=== PATIENT | male | born 1955 | race Caucasian/White ===

== ENCOUNTER 2024-07-03 09:17 | Emergency (ER) | payer MEDICARE, OTHER, SELFPAY ==
[2024-07-03 09:27] VITALS: BP 143/64; PULSE 78; RESP 18; TEMP 38.2; O2SAT 100
--- OUTSIDE RECORDS SUMMARY | 2024-07-03 09:34 | XMS_ITS | Referral Summary ---
Author Organization [facility] [address] Address [address] [email or web address] [address] Phone Care Team Providers Care Utility Porter Name Role Phone Darlene Boo MD Primary Care Provider [phone] Jd Lebron MD Unavailable [phone] Don Parsons DC Unavailable +- [phone] Allergies No known active allergies Medications rcueg-mr5-pys-epa -kt5-klq-ahph 1000-130(40-80) mg capsuleIndication s:stop for surgery Take 1 capsule by mouth daily Active vitamin D3-vitamin K2 25 mcg (1,000 unit)-90 mcg tablet,disintegra ting Take by mouth Active lisinopril-hydroC HLOROthiazide (ZESTORETIC) 10-12.5 mg per tabletIndications :Benign hypertension Take 0.5-1 tablets by mouth daily 90 tablet 3 4 Active Active Problems Problem Noted Date Diagnosed Date Bilateral hip pain 01/15/2023 Assessment & Plan (01/15/2023 3:16 PM CDT): Chronic, worse over the last several weeks. See HPI for details. Mild tenderness as noted above, no weakness or acute exam findings. Will order XR to r/o arthritis or other structural changes. Rxd Celebrex as instructed. Offered both PT and tizanidine, pt refused at this time. Also offered ortho referral for joint injection, patient want to wait to see what meds do. Heat/ice as tolerated. Aspercreme with lidocaine may be helpful also. Call if pain is not improved in 2 weeks, will consider MRI at that time. Encounter for screening colonoscopy 08/29/2022 Overview (08/29/2022): Added automatically from request for surgery [id number] Overweight with body mass in dex (BMI) of 27 to 27.9 in adult 08/28/2022 Chronic left-sided low back pain without sciatic a 11/24/2021 Assessment & Plan (01/11/2022 11:03 AM CDT): Presents for follow up. Pain has resolved with PT and occasional Tylenol. No further symptoms or concerns today. Assessment & Plan (11/24/2021 9:49 AM CDT): Patient presents with ongoing low back/hip pain x 5 months. He had some improvement with customer care associate, but pain resumed with cessation of treatment. He is a hiker walking on uneven surfaces which probably contributes to symptoms. No injury. On exam no weakness, normal reflexes and full ROM. He however, has pain with straight leg raises and RIGOBERTO on the left. Has point tenderness in left buttock and concern for SI joint dysfunction. Have recommended that we trial physical therapy. Offered muscle relaxer, but he declined. He can use tylenol for pain along with ice. He will follow up in 6 weeks or sooner if needed. BPH without urinary obstruction 08/22/2020 Arthritis of knee 08/22/2020 Hx of adenomatous colonic polyps 08/20/2019 Overview (08/22/2020): Colonoscopy (+) 2018 Dr. Lebron, 10 mm tubular adenoma family history of colon cancer recheck at 3 years ED (erectile dysfunction) of organic origin 11/02 Overview (11/27/2017): Started trial Viagra 20 mg 2 tablets daily November 27, 2017 via telephone call conversation Diverticular disease of colon 10/17/2013 Overview (09/07/2016): Diverticulosis of colon Family history of colon cancer 10/17/2013 Overview (07/01/2017): Mother had colon cancer, she did not of the disease. She at the long-term with arthritis in her hip could not get out of bed developed a bedsore diet at age 83 Benign hypertension 04/14/1991 Overview (07/01/2017): Following blood pressure at home with range 140 over 80-85, on lisinopril/HCT since the Assessment & Plan (01/15/2023 3:12 PM CDT): BP stable in office today on lisinopril/HCTZ. No acute findings on exam. Continue current regimen and low salt diet. Resolved Problems Problem Noted Date Diagnosed Date Resolved Date Non-recurrent unilateral ing uinal hernia without obstruction or gangrene 12/31/2018 08/20/19 20 Overview (12/31/2018): Added automatically from request for surgery [id number] Screen for colon cancer 07/09/201808/01 Overview (07/09/2018): Added automatically from request for surgery [id number] Left inguinal hernia 07/01/2017 020 Overview (07/01/2017): On exam June 2017, watchful waiting for now Onychomycosis of toenail 10/17/2013 Overview (09/07/2016): Toenail fungus Benign prostatic hyperplasia with urinary obstruction 04/24/2013 07/01/2017 Overview (09/05/2016): BPH with obstruction/lower urinary tract symptoms Immunizations Name Administration Dates Next Due Hep A, Adult 07/04/2009,12/01/2008 Hep B Vaccine 12/08/2013,07/07/2013,06/09/2013 Pneumococcal Conjugate PCV 13 07/02/2018 Pneumococcal Polysaccharide PPV23 08/20/2019 Tdap 08/15/2011 Social History Tobacco Use Types Packs/Day Years Used Date Smoking Tobacco: Never Smokeless Tobacco: Never Tobacco Cessation:Counseling Given: Yes Alcohol Use Standard Drinks/Week Comments Yes 0 (1 standard drink = 0.6 oz pur e alcohol) wine special occassions PHQ-2 Answer Date Recorded PHQ-2 Total Score (If total score is 3 or more points, staff should administer the PHQ-9) 0 09/02/2023 Personal Safety Answer Date Recorded Have you ever been in or are you currently in a harmful physical or emotional relationship or is someone making you feel afraid or unsafe? 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 Not on file Not on file Last Filed Vital Signs Vital Sign Reading Time Taken Comments Blood Pressure 126/64 09/02/2023 9:33 AM CDT Pulse 80 09/02/2023 9:33 AM CDT Temperature 36.7 ??C (98 ??F) 09/02/2023 9:33 AM CDT Respiratory Rate 18 09/02/2023 9:33 AM CDT Oxygen Saturation 97% 09/02/2023 9:33 AM CDT Inhaled Oxygen Concentration - - Weight 96.2 kg (212 lb) 09/02/2023 9:33 AM CDT Height 182.9 cm (6') 09/02/2023 9:33 AM CDT Body Mass Index 28.75 09/02/2023 9:33 AM CDT Plan of Treatment Not on file Medical Devices Implanted Type Area Production Leader Device Identifier Shelf Expiration Date Model / Serial / Lot Med[employer]onic [employer] [id number] Progrip 15x9cm Self Relay Engineer Rectangle Mesh Surgical Polyester Hernia - [id number] Implanted:Qty: 1 on 01/05/2019 by Don Phelps MD at [facility] Left: Inguinal [employer] 07/03/2023 [id number] / / [id number] Procedures Procedure Name Priority Date/Time Associated Diagnosis Comments PSA SCREEN Routine 08/27/2023 8:19 AM CDT Prostate cancer screening COLONOSCOPY 12/10/2022 7:25 AM CDT HEPATITIS C ANTIBODY Routine 07/02/2018 1:58 PM PANELBOARD ASSEMBLER Encounter for hepatitis C screening test for low risk patient from Last 3 Months or Most Recently Relevant to Health Maintenance Results * PSA screen (08/27/2023 8:19 AM CDT) PSA-Total 0.59 <=6.20 ng/mL Comment: Interpretive Data ?AGE ? SEX ?REFERENCE INTERVAL 0 minutes-150 years ?Female ?None 0 minutes-49 years ? Male ?None ? 50-59 years ? Male ?0-3.90 ? 60-69 years ? Male ?0-5.40 ? 70-79 years ? Male ?0-6.20 ? 80-150 years ?Male ?0-6.20 The Tesha PSA Total assay procedure was used. Results from different manufacturers or methods may not be comparable. Serial testing should be performed using the same method. Current interpretive data last revised 21. Blood 08/27/2023 8:19 AM CDT 08/27/2023 2:35 PM CDT us Darlene Boo MD LAB BLOOD ORDERABLES Final Result Performing Organization Address City/State/ZIP Co sc Phone Number [place] [address] [address] Department [place] [address] * COLONOSCOPY (12/10/2022 7:25 AM CDT) Anatomical Region Laterality Modality Other Narrative Procedure Note Jd Lebron MD - 12/10/2022 7:25 AM CDT [facility] Patient Name: Leonid Rodriguez Procedure Date: 12/10/2022 7:25 AM Date of : 1955 Admit Type: Outpatient Age: 67 Gender: Male Attending MD: Jd Lebron M.D. Room: [facility] ENDOSCOPY ROOM 1 Note Status: Finalized Patient Profile: This is a 67 year old male. History of polyps.Mother had colon cancer. Procedure: Colonoscopy Indications: Screening in patient at increased risk: Familyhistory of 1st-degree relative with colorectal cancer, High risk colon cancer surveillance: Personal history of colonic polyps, Last colonoscopy: November 2018 Referring MD: Darlene Boo M.D. Providers: Jd Lebron M.D. Impression: - Diverticulosis in the sigmoid colon and in the descending colon. - Small internal hemorrhoids. - No specimens collected. Recommendation: - Repeat colonoscopy in 5 years for screeningpurposes. - Continue present medications. Medicines: Monitored Anesthesia Care Complications: No immediate complications. Estimated Blood Loss: Estimated blood loss: none. Procedure: Pre-Anesthesia Assessment: - Prior to the procedure, a History and Physicalwas performed, and patient medications and allergieswere reviewed. The patient's tolerance of previous anesthesia was also reviewed. The risks andbenefits of the procedure and the sedation options and risks were discussed with the patient. All questions were answered, and informed consent was obtained. Prior Anticoagulants: The patient has taken noanticoagulant or antiplatelet agents. ASA Grade Assessment: II -A patient with mild systemic disease. After reviewing the risks and benefits, the patient was deemed in satisfactory condition to undergo the procedure. The benefits, risks and alternatives of theprocedure and sedation were discussed and informed consentwas obtained. All questions were answered. Please referto the signed informed consent document in the medical record. The bowel preparation used was Miralax and bisacodyl tablets via split dose instruction. The scope was passed under direct vision. The Pediatric Colonoscope PCF-H190L [id number] was introducedthrough the anus and advanced to the the cecum, identifiedby appendiceal orifice and ileocecal valve. Thequality of the bowel preparation was good. Bowel prep was administered using a split dose. Findings: The perianal and digital rectal examinations were normal. The transverse colon, ascending colon and cecum appeared normal. No polyps and no mass lesions noted in the colon. Multiple medium-mouthed diverticula were found in the sigmoid colonand descending colon. Internal hemorrhoids were found during retroflexion. The hemorrhoids were small. Electronically signed by Jd Lebron M.D. Jd Lebron M.D. 12/10/2022 8:46:46 AM Number of Addenda: 0 Note Initiated On: 12/10/2022 7:25 AM Procedure Code(s): --- Professional --- G0105, Colorectal cancer screening; colonoscopy on individual at high risk Diagnosis Code(s): --- Professional --- Z80.0, Family history of malignant neoplasm of digestive organs Z86.010, Personal history of colonic polyps K64.8, Other hemorrhoids K57.30, Diverticulosis of large intestine without perforation orabscess without bleeding CPT copyright 2020 [employer]. All rights reserved. The codes documented in this report are preliminary and upon automation tester reviewmay be revised to meet current compliance requirements. Recognized by the [place] for promoting quality in endoscopy Jd Lebron MD ENDOSCOPY PROCEDURES Final Result * Hepatitis C antibody (07/02/2018 1:58 PM PANELBOARD ASSEMBLER) Hep C Ab NON-REACTI VE NON-REACTI VE [facility] [place] SIGNAL TO CUT-OFF 0.02 <1.00 [facility] [place] Blood specimen (specimen) 07/02/2018 1:58 PM PANELBOARD ASSEMBLER 07/02/2018 1:58 PM PANELBOARD ASSEMBLER Narrative Resulting Agency Comment Performing Organization Information: ?Site ID: [facility] ?Name: [employer] [facility] ?Address: [address] [place] [address] [place] [address] ?Director: Josue Aguiar D.O., MPH Darlene Boo MD LAB MICROBIOLOGY - GENERAL ORDERABLES Final Result [facility] [place] from Last 3 Months or Most Recently Relevant to Health Maintenance Insurance MEDICARE [facility] MEDICARE [facility] Advance Directives For more information, please contact: [phone] Documents on File Type Date Recorded Patient Metal Dealer Expl anation ADVANCE DIRECTIVE 07/02/2018 3:53 PM DNR ADVANCE DIRECTIVE 08/07/2010 POWER OF A TTORNEY * Full Code (Latest Code Status on File) Date Activated Date Inactivated Comments 12/10/2022 7:21 AM 12/10/2022 1:22 PM * Full Code Date Activated Date Inactivated Comments 12/10/2022 7:21 AM 12/10/2022 7:21 AM Care Teams Utility Porter Relationship Specialty Start Date End Date Darlene Boo MD PCP - General 11/03/12 Jd Lebron MD Consulting Physician Gastroenterology 07/01/17 Don Parsons DC [address] [place] [address] Referring Physician Chiropractic Medicine 09/06/23
--- OUTSIDE RECORDS SUMMARY | 2024-07-03 09:34 | XMS_ITS | Clinical Summary ---
Author Organization [facility] [address] Address [address] [place] [address] Phone Care Team Providers Care Coordinate Measuring Machine Technician Name Role Phone Darlene Boo MD Primary Care Provider [phone] Jd Lebron MD Unavailable [phone] Don Parsons DC Unavailable [phone] Allergies No known active allergies Medications mvetm-im0-ofo-epa -na5-hpy-cynd 1000-130(40-80) mg capsuleIndication s:stop for surgery Take [...] (08/29/2022): Added automatically from request for surgery [id number] Overweight with body mass in dex (BMI) [...] 5 months. He had some improvement with child care aide, but pain resumed with cessation of treatment. [...] not of the disease. She at the residential with arthritis in her hip could not [...] (12/31/2018): Added automatically from request for surgery [id number] Screen for colon cancer 07/09/201808/01 Overview (07/09/2018): Added automatically from request for surgery [id number] Left inguinal hernia 07/01/2017 020 Overview (07/01/2017): [...] 07/02/2018 Pneumococcal Polysaccharide PPV23 08/20/2019 Tdap 08/15/2011 Surgical History Surgery Date Site/Laterality Comments OTHER SURGICAL HISTORY 06/03/1982 - 06/02/1983 excision foot cyst KNEE ARTHROSCOPY 06/03/1983 - 06/02/1984 Right Arthroscopy knee OTHER SURGICAL HISTORY 06/03/2011 - 06/02/2012 Benign hypertension: COLONOSCOPY 08/01/2008 - 08/31/2008 (-) Dr. Lebron due every 5 years family history colon cancer COLONOSCOPY 11/03/2018 (+) Dr. Lebron 10 mm polyp cecum pathology pending HERNIA REPAIR 01/05/2019 Left Inguinal Hernia COLONOSCOPY 12/10/2022 (-) Dr. Lebron, diverticulosis sigmoid. Recheck 5 years family history colon cancer Medical History Medical History Date Comments Hx Other Medical Benign hyperten monica; Comments: Darlene Boo MD; Outcome: Resolved from Problem List Hx Other Medical 2012 Prostatitis HPV (human papilloma virus) infection BPH (benign prostatic hyperplasia) Toenail fungus DJD (degenerative joint disease) of knee Diverticulosis 04/2004 Hypertension Abdominal hernia Family History Medical History Relation Name Comments Other Brother Blood disorder; bone marrow cancer Prostate cancer Father Colon cancer Mother Relation Name Status Comments Brother Father Mother Social History Tobacco Use Types Packs/Day Years [...] on file 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 Gender Identity Not on file Sexual Orientation Not on file 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 Not on file Not on file Obstetrics History Last Filed Vital Signs Vital Sign Reading [...] 09/02/2023 9:33 AM CDT Plan of Treatment Health Maintenance Due Date Last Done Comments Zoster Vaccine (1 of 2) 2003 DTaP/Tdap/Td Vaccine (2 - Td or Tdap) 08/14/2021 08/15/2011 Influenza Vaccine (#1) 2024 Depression Screening 09/01/2024 09/02/2023, 09/02/2023, 08/28/2022, Additional history exists Fall Risk Assessment 09/01/2024 09/02/2023, 12/10/2022, 08/28/2022, Additional history exists Well Visit 65+ 09/01/2024 09/02/2023, 08/02, 08/25/2021, Additional history exists Prostate Cancer Screening-PSA 08/26/2025, 08/21/2022, 08/29/2021, Additional history exists Colon Cancer Screening-Colonoscopy 12/10/2032 12/10/2022, 11/03/2018 Hepatitis C Screening Completed 07/02/2018 Pneumococcal vaccine 65+ Completed 08/20/2019, 06/05 Colon Cancer Screening-CT Colonography Discontinued 12/10/2022, 11/03/2018 Colon Cancer Screening-DNA Stool Discontinued 12/11/19 23, 11/03/2018 Colon Cancer Screening-FIT Discontinued 12/10/2022, Colon Cancer Screening-Sigmoidoscopy Discontinued 12/10/2022, 11/03/2018 Medical Devices Implanted Type Area Edge Bander Operator Device Identifier Shelf Expiration Date Model / Serial / Lot [employer] [id number] Progrip 15x9cm Self Failure Analysis Technician Rectangle Mesh Surgical Polyester Hernia - [id number] Implanted:Qty: 1 on 01/05/2019 by Don Phelps MD at [facility] Left: Inguinal [employer] 07/03/2023 [id number] / / [id number] Procedures Procedure Name Priority Date/Time Associated Diagnosis Comments PSA SCREEN Routine 08/27/2023 8:19 AM CDT Prostate cancer screening COLONOSCOPY 12/10/2022 7:25 AM CDT HEPATITIS C ANTIBODY Routine 07/02/2018 1:58 PM GROUND OPERATIONS SUPERVISOR Encounter for hepatitis C screening test for [...] Final Result Performing Organization Address City/State/ZIP Co ks Phone Number [facility] [place] [address] [place] [address] * COLONOSCOPY (12/10/2022 7:25 AM CDT) Anatomical Region Laterality Modality Other Narrative Procedure Note Jd Lebron MD - 12/10/2022 7:25 AM CDT [facility] Patient Name: Leonid Rodriguez Procedure Date: 12/10/2022 7:25 AM Date of : 1955 Admit Type: Outpatient Age: 67 Gender: Male Attending MD: Jd Lebron M.D. Room: [facility] ENDOSCOPY ROOM 1 Note Status: Finalized Patient [...] under direct vision. The Pediatric Colonoscope PCF-H190L [id number] was introducedthrough the anus and advanced to [...] perforation orabscess without bleeding CPT copyright 2020 [employer]. All rights reserved. The codes documented in this report are preliminary and upon survey party chief reviewmay be revised to meet current compliance requirements. Recognized by the [employer] for promoting quality in endoscopy us Jd Lebron MD ENDOSCOPY PROCEDURES Final Result * Hepatitis C antibody (07/02/2018 1:58 PM GROUND OPERATIONS SUPERVISOR) Hep C Ab NON-REACTI VE NON-REACTI VE [facility] [place] SIGNAL TO CUT-OFF 0.02 <1.00 [facility] [place] Blood specimen (specimen) 07/02/2018 1:58 PM GROUND OPERATIONS SUPERVISOR 07/02/2018 1:58 PM GROUND OPERATIONS SUPERVISOR Narrative Resulting Agency Comment Performing Organization Information: ?Site ID: [facility] ?Name: [facility] ?Address: [address] [place] [address] ?Director: Josue Aguiar D.O., MPH us Darlene Boo MD LAB MICROBIOLOGY - GENERAL ORDERABLES Final Result [facility] [place] from Last 3 Months or Most Recently Relevant to Health Maintenance Insurance MEDICARE Member Subscriber Plan / Payer (Ef fective 2018-Present) Name:Leonid Rodriguez Member ID:[id number] Relation to Subscriber:Self Name:Leonid Rodriguez Subscriber ID:[id number] Payer ID:[id number] Group ID:Not on file Type:MEDICARE TRADITIONAL Address: [address] [address] [place] [address] [employer] MEDICARE [place] [facility] [place] Advance Directives For more information, please contact: [phone] Documents on File Type Date Recorded Patient Lead Pl Sql Developer Expl anation ADVANCE DIRECTIVE 07/02/2018 3:53 PM DNR ADVANCE DIRECTIVE 08/07/2010 POWER OF A TTORNEY * Full Code (Latest Code Status on File) Date Activated Date Inactivated Comments 12/10/2022 7:21 AM 12/10/2022 1:22 PM * Full Code Date Activated Date Inactivated Comments 12/10/2022 7:21 AM 12/10/2022 7:21 AM Care Teams Coordinate Measuring Machine Technician Relationship Specialty Start Date End Date Darlene Boo MD PCP - General 11/03/12 Jd Lebron MD Consulting Physician Gastroenterology 07/01/17 Don Parsons DC [address] [place] [address] Referring Physician Chiropractic Medicine 09/06/23
== END 2024-07-03 10:22 | disposition left against medical advice (07) ==
LOC: EXPBETH 09:23
PROVIDERS: Emergency Provider Nurse Practitioner Family; PCP Internal Medicine Geriatric Medicine
DX: Z53.21 Procedure and treatment not carried out due to patient leaving prior to being seen by health care provider (principal)
CPT/HCPCS: 99199